=== PATIENT | female | born 1980 | race African-American/Black ===

== ENCOUNTER → 2017-06-02 | Outpatient (CLI) | payer OTHER ==
[~2017-06-02] MED LIST: HAIR SKIN NAIL1 EACH PO; MULTI VITAMIN1 EACH PO
--- NOTE | ~2017-06-02 | US5 ---
[facility] A Service of [facility] RADIOLOGY TEXT RESULTS PATIENT: MARYBEL MERCER LOCATION: [facility] : [birth year] UNIT #: [id number] AGE: [address]: ELIANE TRENT APRN SEX: F ORDER DR: [id number] [facility] [address] [place], [place] [address] [id number] O MR#: [id number] Acc #: [id number] NAME: MARYBEL MERCER : 1980 SEX: F STUDY DATE/TIME: 06/02/2017 9:00 UNIT: [facility] ROOM: STUDY DESCRIPTION: US Abdominal Complete Attending Physician: Eliane Trent Np Referring Physician: Eliane Trent Np Ordering Physician: Eliane Trent Np Primary Care Physician: Nico Mendieta M.D. MEDICAL IMAGING REPORT This report is preliminary unless electronic signature is present EXAM Abdominal ultrasound COMPARISON CT abdomen and pelvis of IV contrast June 17, 2015. INDICATIONS 36-year-old female with right side abdominal pain since January 2017, which has been intermittent. FINDINGS Visualized portions of the pancreas are unremarkable. Hepatic contour is smooth. Portal architecture is maintained. Main portal vein is patent with expected flow direction and waveform. Gallbladder wall thickness is normal. There is no pericholecystic fluid. There is layering non-shadowing echogenic focus seen along the gallbladder wall dependently which is appears to be separate from the gallbladder wall. This is most consistent with cholelithiasis. The right kidney is normal. There may also be layering sludge within the dependent gallbladder lumen. Common bile duct caliber is 3 mm. IVC is patent at the level of the liver. The abdominal aorta is not well seen superiorly due to shadowing from bowel gas. This measures up to 1.2 cm in caliber superiorly. The mid-abdominal aorta measures up to 1.3 cm. The distal abdominal aorta measures up to 1.6 cm. The spleen is normal in size. The urinary bladder is not seen. Evaluation of the kidneys is partly limited by shadowing, perhaps due to overlapping ribs. There is no left hydronephrosis. There is normal left cortical thickness. No definite left renal lesion. No free fluid. Normal common bile duct caliber of 3 mm. IMPRESSION 1. Findings most consistent with a single cholelith, possibly with adjacent layering sludge. No evidence of acute cholecystitis. Normal biliary caliber. [facility] A Service of [facility] RADIOLOGY TEXT RESULTS PATIENT: MARYBEL MERCER LOCATION: [facility] : [birth year] UNIT #: [id number] AGE: [address]: ELIANE TRENT APRN SEX: F ORDER DR: 2. No abnormality of the liver, spleen or kidneys is seen. Urinary bladder was not imaged. Dictated by... Nicolas Up M.D. THIS IS AN ELECTRONICALLY VERIFIED REPORT Nicolas Up M.D. at 06/07/2017 10:29 PM BLM/pcl TD: 06/02/2017 21:36 JOB #: [id number] MEDICAL IMAGING REPORT Page 1 of 1 COPY
== END | disposition home or self-care (01) ==
LOC: CWCC 08:40
DX: R10.9 Unspecified abdominal pain (principal)
CPT/HCPCS: 76700

== ENCOUNTER → 2017-07-13 | Outpatient (CLI) | payer OTHER ==
[2017-07-13 10:39] LABS: ALBUMIN SERUM 4.3 g/dL (3.5-5.0); BUN/CREATININE RATIO 27.14; CALCIUM SERUM 9.6 mg/dL (8.4-10.2); CREATININE SERUM 0.7 mg/dL (0.6-1.4); GLOM FILT RATE Estimated 130.1 mL/min (>60)
== END | disposition home or self-care (01) ==
LOC: CAMB 08:00
PROVIDERS: Surgery
DX: Z01.812 Encounter for preprocedural laboratory examination (principal)
CPT/HCPCS: 36415; 80053

== ENCOUNTER → 2017-07-20 | Day surgery (SDC) | payer OTHER ==
--- NOTE | ~2017-07-20 | OR ---
Unit #: [id number] #: [id number] Patient: MARYBEL MERCER [id number] [address] [place], [place] [address] [id number] O MR#: [id number] NAME: MARYBEL MERCER ROOM: Date of Procedure: 07/20/2017 Admission Date: 07/20/2017 Surgeon: Bhanu Hernandez Jr., M.D. : 1980 Attending Physician: Bhanu Hernandez Jr., M.D. Referring Physician: Bhanu Hernandez Jr., M.D. Primary Care Physician: Nico Mendieta M.D. OPERATIVE REPORT INDICATIONS FOR PROCEDURE The patient is a 36-year-old black female, who has been having intermittent mid epigastric and right upper quadrant abdominal pain and has documented gallstones. It was felt she is having biliary colic and was brought to the operating room at this time for laparoscopic cholecystectomy at her request. She understands the procedure including the risks, including that of intra-abdominal organ injury, biliary leak, and bleeding, and common duct injury, and consents. PREOPERATIVE DIAGNOSES Chronic cholecystitis and cholelithiasis with biliary colic. POSTOPERATIVE DIAGNOSES Chronic cholecystitis and cholelithiasis with biliary colic noting multiple intra-abdominal adhesions from previous surgery as well as chronic inflamed gallbladder. ANESTHESIA General with endotracheal intubation and 0.5% Marcaine with epinephrine locally. PROCEDURE PERFORMED Laparoscopic cholecystectomy. DESCRIPTION OF PROCEDURE The patient was positioned in supine position. After being anesthetized and intubated, she was prepped and draped in routine fashion for laparoscopic cholecystectomy. A small 0.5 cm incision was made in the right lateral abdominal wall area and a 5-mm Optiview was introduced in the abdomen. The abdomen was then inflated with CO2 gas. The camera was introduced in the abdomen. There was no evidence of any injury related to introduction of the Optiview. Brief intra-abdominal exploration was carried out and the patient was noted to have multiple adhesions in the lower abdomen from her previous surgery. These were felt to be of nonconsequential and 0.5 cm incision was made just below the umbilicus in the right and a 5-mm port introduced under direct visualization. The camera was switched to this port. An additional 5-mm port was placed in the right lateral abdominal wall area and an 11-mm port just right of the upper midline. The gallbladder was lifted. Dissection was carried out on the triangle of Calot, cystic duct which was small only approximately 1 mm in diameter was isolated, hemoclipped x4 centimeter from its junction with the common duct and divided. Cystic artery identified, hemoclipped x3, Unit #: [id number] #: [id number] Patient: MARYBEL MERCER and divided. The common duct appeared normal and the preoperative liver function tests were normal, so cholangiogram was not considered. The gallbladder was removed from its bed with the hook cautery using a current of 20 and after it was released, it was removed through the upper midline incision along with a grasping clamp. The port was replaced. Subhepatic space checked. A small amount of bile was removed with a sponge packed in and directly taken out in the area. There was no evidence of any bleeding from the gallbladder bed. The clips on cystic duct and cystic artery were intact with no evidence of leak or bleeding. The CO2 was expressed from the abdomen. The fascia in the larger port site was approximated with the neoClose technique and after CO2 was expressed from the abdomen, the ports removed. There was no evidence of any bleeding from the port sites. The port sites were injected with 0.5% Marcaine with epinephrine and after hemostasis achieved with Bovie cautery, the skin edges on all the port sites were approximated with stainless-steel skin clips and skin stapling device. Sterile dressings were applied externally. Estimated blood loss less than 25 mL. The patient received less than 1000 mL crystalloid solution during the procedure. Sponges and instrument counts were correct x3. No drains used. No complications. The patient was taken to the recovery room with stable vital signs in satisfactory condition. Dictated by... Bhanu Hernandez Jr., M.D. JMB/jaqui TD: 07/20/2017 11:17 JOB #: [id number] OPERATIVE REPORT Page 1 of 1 X Bhanu Hernandez MD X PROCEDURE OPERATIVE NOTE
== END | disposition home or self-care (01) ==
LOC: CSUR 05:35
DX: K81.1 Chronic cholecystitis (principal); K21.9 Gastro-esophageal reflux disease without esophagitis; Z90.710 Acquired absence of both cervix and uterus
CPT/HCPCS: 88304; J0330; J0690; J1100; J1885; J2175; J2250; J2405; J3010